=== PATIENT | male | born 1960 | race African-American/Black ===

== ENCOUNTER 2016-10-04 02:24 | Emergency (ER) | payer MEDICAID ==
[~2016-10-04] VITALS: Ht 188 cm; Wt 86.0 kg
[2016-10-04 02:38] VITALS: BP 163/109
== END 2016-10-04 04:00 | disposition left against medical advice (07) ==
LOC: ER 02:26 → EDBD 02:26 → ER 04:00
DX: F19.129 Other psychoactive substance abuse with intoxication, unspecified (principal)
CPT/HCPCS: 99283

== ENCOUNTER 2017-04-21 01:45 | Emergency (ER) | payer MEDICAID ==
[~2017-04-21] VITALS: Ht 190.5 cm; Wt 80.0 kg
[2017-04-21] MEDS ORDERED: SODIUM CHLORIDE 0.9% 1,000 ML IV ONE (06:38)
[2017-04-21] MEDS ORDERED: IBUPROFEN 600MG TABLET PO ONE (06:45)
[2017-04-21 07:25] LABS: BASOPHILS % 1.1 % (0.0-2.0); HEMATOCRIT. 41.7 % (42.0-52.0); HEMOGLOBIN. 13.6 g/dL (14.0-18.0); LYMPHOCYTES % 70.7 % (20.0-50.0); MEAN CORPUSCULAR HEMOGLOBIN 25.7 pg (28.0-32.0); MEAN CORPUSCULAR VOLUME 78.6 fL (80.0-94.0); MEAN PLATELET VOLUME 8.6 fl (7.4-10.4); MONOCYTES % 6.1 % (2.0-8.0); NEUTROPHILS % 21.1 % (40.0-76.0); PLATELET 170 x1000/uL (130-400); RED CELL DISTRIBUTION WIDTH 14.2 % (11.6-14.6)
[2017-04-21 07:39] LABS: CARBON DIOXIDE 27 mEq/L (21-32); CHLORIDE 103 mEq/L (98-107); ETHANOL BLOOD 290 mg/dL
[2017-04-21 10:56] VITALS: BP 109/80
== END 2017-04-21 10:59 | disposition home or self-care (01) ==
LOC: ER 01:48
DX: M25.551 Pain in right hip (principal); F10.129 Alcohol abuse with intoxication, unspecified; Y90.8 Blood alcohol level of 240 mg/100 ml or more; F17.200 Nicotine dependence, unspecified, uncomplicated; G89.29 Other chronic pain
CPT/HCPCS: 36415; 73522; 80053; 85025; 96360; 96361; 99285; G0482; J7030

== ENCOUNTER 2020-10-10 19:11 | Emergency (ER) | payer MEDICAID, OTHER ==
[~2020-10-10] VITALS: Ht 175.3 cm; Wt 86.0 kg
[2020-10-11 06:00] VITALS: BP 119/74
== END 2020-10-11 06:17 | disposition home or self-care (01) ==
LOC: ER 19:11
DX: F10.229 Alcohol dependence with intoxication, unspecified (principal); M79.662 Pain in left lower leg; M79.661 Pain in right lower leg; I10 Essential (primary) hypertension; G40.909 Epilepsy, unspecified, not intractable, without status epilepticus; Y90.9 Presence of alcohol in blood, level not specified; W01.0XXA Fall on same level from slipping, tripping and stumbling without subsequent striking against object, initial encounter; Y93.89 Activity, other specified; Y92.488 Other paved roadways as the place of occurrence of the external cause; Y99.8 Other external cause status
CPT/HCPCS: 93005; 99285

== ENCOUNTER 2020-10-28 20:14 | Emergency (ER) | payer OTHER ==
[~2020-10-28] VITALS: Ht 185.4 cm; Wt 82.0 kg
[2020-10-28] MEDS ORDERED: DEXTROSE 50% WATER 50ML SYRINGE IV ONE (20:33)
[2020-10-28 23:22] LABS: EOSINOPHILS % 6.2 % (0.0-5.0); HEMATOCRIT. 34.1 % (42.0-52.0); HEMOGLOBIN. 11.5 g/dL (14.0-18.0); LYMPHOCYTES % 44.8 % (20.0-50.0); MEAN CORPUSCULAR HEMOGLOBIN 27.6 pg (28.0-32.0); MEAN CORPUSCULAR VOLUME 81.9 fL (80.0-94.0); MEAN PLATELET VOLUME 8.6 fl (7.4-10.4); MONOCYTES % 8.5 % (2.0-8.0); NEUTROPHILS % 39.5 % (40.0-76.0); PLATELET 230 x1000/uL (130-400); RED BLOOD CELL COUNT 4.16 mill/uL (4.7-6.1); RED CELL DISTRIBUTION WIDTH 16.8 % (11.6-14.6)
[2020-10-28 23:36] LABS: CHLORIDE 102 mEq/L (98-107)
[2020-10-28 23:58] LABS: ETHANOL BLOOD 372 mg/dL
[2020-10-29 03:40] VITALS: BP 120/85
== END 2020-10-29 04:28 | disposition home or self-care (01) ==
LOC: ER 20:14
DX: S01.01XA Laceration without foreign body of scalp, initial encounter (principal); F10.129 Alcohol abuse with intoxication, unspecified; Y90.8 Blood alcohol level of 240 mg/100 ml or more; R00.0 Tachycardia, unspecified; W01.198A Fall on same level from slipping, tripping and stumbling with subsequent striking against other object, initial encounter; Y93.01 Activity, walking, marching and hiking; Y92.480 Sidewalk as the place of occurrence of the external cause; I87.8 Other specified disorders of veins
CPT/HCPCS: 36415; 80053; 80320; 85025; 93005; 99285; G0480

== ENCOUNTER 2020-11-04 18:37 | Inpatient (IN) | payer OTHER ==
[~2020-11-04] VITALS: Ht 190.5 cm; Wt 76.2 kg
[2020-11-04] MEDS ORDERED: SODIUM CHLORIDE 0.9% 1,000 ML IV ONE ×2 (19:30→22:00)
[2020-11-04 20:05] LABS: BG BASE EXCESS -0.1 mmol/L (-2.0-2.0); BG CARBOXYHEMOGLOBIN 2.4 % (0.5-1.5); BG DEOXYHEMOGLOBIN 2.1 % (0.0-5.0); BG HCO3 ACT 22.4 mmol/L (22.0-26.0); BG METHEMOGLOBIN 0.4 % (0.0-1.5); BG OXYGEN SATURATION 97.8 % (92.0-98.5); BG OXYHEMOGLOBIN 95.1 % (94.0-97.0); BG PCO2 29.2 mmHg (35.0-45.0); BG PH 7.503 (7.350-7.450); BG PO2 124.8 mmHg (75.0-100.0); BG SAMPLE SITE LEFT RADIAL; BG TOTAL HEMOGLOBIN 10.3 g/dL (12.0-18.0); BG VENT MODE ROOM AIR
[2020-11-04 20:35] LABS: BASOPHILS % 1.3 % (0.0-2.0); EOSINOPHILS % 6.3 % (0.0-5.0); HEMOGLOBIN. 11.3 g/dL (14.0-18.0); MEAN CORPUSCULAR VOLUME 81.5 fL (80.0-94.0); MEAN PLATELET VOLUME 8.5 fl (7.4-10.4); MONOCYTES % 8.3 % (2.0-8.0); NEUTROPHILS % 45.1 % (40.0-76.0); PLATELET 173 x1000/uL (130-400); RED BLOOD CELL COUNT 4.17 mill/uL (4.7-6.1); RED CELL DISTRIBUTION WIDTH 16.4 % (11.6-14.6)
[2020-11-04 20:41] LABS: CHLORIDE 104 mEq/L (98-107)
[2020-11-04 21:17] LABS: ETHANOL BLOOD 418 mg/dL
[2020-11-04] MEDS ORDERED: AZITHROMYCIN 500 MG in DEXT 5% WATER 250 ML IV ONE (22:00)
[2020-11-04] MEDS ORDERED: CEFTRIAXONE 1 G PREMIX 50 ML IV ONE (22:00)
[2020-11-04 23:21] LABS: CLARITY URINE CLEAR (CLEAR); COLOR URINE DARK YELLOW (YELLOW); KETONES URINE TRACE (NEGATIVE); LEUKOCYTE ESTERASE URINE TRACE (NEGATIVE); NITRITE URINE POSITIVE (NEGATIVE); OCCULT BLOOD URINE 2+ (NEGATIVE); PH URINE 5.5 (4.5-8.0); PROTEIN URINE 2+ (NEGATIVE); SPECIFIC GRAVITY URINE 1.024 (1.005-1.030)
[2020-11-04 23:30] LABS: *AMPHETAMINES SCREEN URINE NEGATIVE (NEGATIVE); *BARBITURATES SCREEN URINE NEGATIVE (NEGATIVE); *BENZODIAZEPINES SCREEN URINE NEGATIVE (NEGATIVE); *COCAINE SCREEN URINE NEGATIVE (NEGATIVE); METHADONE URINE SCREEN NEGATIVE (NEGATIVE)
[2020-11-04 23:31] LABS: CANNABINOID URINE SCREEN NEGATIVE (NEGATIVE); OPIATES URINE SCREEN NEGATIVE (NEGATIVE); PHENCYCLIDINE URINE SCREEN NEGATIVE (NEGATIVE)
[2020-11-05] VITALS (7 sets, daily range): BP systolic 128–152; BP diastolic 68–93
[2020-11-05] MEDS ORDERED: PHEN100C4 PO (02:39)
[2020-11-05] MEDS: FOLIC ACID 1 MG, THIAMINE HCL 100 MG, MVI, ADULT NO.1 10 ML in DEXTROSE 5% WATER 1,000 ML IV SCH (05:42)
[2020-11-05] MEDS: CHLORDIAZEPOXIDE 25MG CAPSULE PO SCH ×3 (05:42→21:37)
[2020-11-05] MEDS: LEVETIRACETAM 500MG/5ML CUP PO SCH ×2 (08:51→21:37)
[2020-11-05 08:58] LABS: BASOPHILS % 1.3 % (0.0-2.0); EOSINOPHILS % 5.2 % (0.0-5.0); HEMOGLOBIN. 10.7 g/dL (14.0-18.0); LYMPHOCYTES % 31.7 % (20.0-50.0); MEAN CORPUSCULAR HEMOGLOBIN 27.1 pg (28.0-32.0); MEAN CORPUSCULAR VOLUME 81.5 fL (80.0-94.0); MEAN PLATELET VOLUME 8.6 fl (7.4-10.4); MONOCYTES % 9.3 % (2.0-8.0); NEUTROPHILS % 52.5 % (40.0-76.0); PLATELET 160 x1000/uL (130-400); RED BLOOD CELL COUNT 3.93 mill/uL (4.7-6.1); RED CELL DISTRIBUTION WIDTH 16.6 % (11.6-14.6)
[2020-11-05 09:01] LABS: CHLORIDE 102 mEq/L (98-107)
[2020-11-05] MEDS: LORAZEPAM 2MG/ML CPJ IV PRN ×2 (10:31→17:07)
[2020-11-05] MEDS ORDERED: POTASSIUM CHLORIDE 20MEQ/PACKET PO NR (13:15)
[2020-11-05] MEDS: CEFTRIAXONE 1,000 MG in DEXTROSE 5% WATER 50 ML IV SCH (14:33)
[2020-11-05] MEDS: ENOXAPARIN 40MG/0.4ML SYR SUBCUT SCH (21:37)
[2020-11-06] VITALS (7 sets, daily range): BP systolic 102–132; BP diastolic 78–89
[2020-11-06] MEDS ORDERED: HALOPERIDOL LACTATE 5MG/ML VIAL IM NR (03:00)
[2020-11-06] MEDS: CHLORDIAZEPOXIDE 25MG CAPSULE PO SCH ×3 (06:01→21:43)
[2020-11-06] MEDS: LORAZEPAM 2MG/ML CPJ IV PRN ×2 (09:21→20:39)
[2020-11-06] MEDS: LEVETIRACETAM 500MG/5ML CUP PO SCH ×2 (09:21→20:11)
[2020-11-06] MEDS: FOLIC ACID 1 MG, THIAMINE HCL 100 MG, MVI, ADULT NO.1 10 ML in DEXTROSE 5% WATER 1,000 ML IV SCH (09:22)
[2020-11-06 09:57] LABS: BASOPHILS % 1.2 % (0.0-2.0); EOSINOPHILS % 4.9 % (0.0-5.0); HEMATOCRIT. 35.8 % (42.0-52.0); LYMPHOCYTES % 25.8 % (20.0-50.0); MEAN CORPUSCULAR HEMOGLOBIN 27.3 pg (28.0-32.0); MEAN CORPUSCULAR VOLUME 81.7 fL (80.0-94.0); MEAN PLATELET VOLUME 8.6 fl (7.4-10.4); MONOCYTES % 7.2 % (2.0-8.0); NEUTROPHILS % 60.9 % (40.0-76.0); PLATELET 138 x1000/uL (130-400); RED BLOOD CELL COUNT 4.39 mill/uL (4.7-6.1); RED CELL DISTRIBUTION WIDTH 16.5 % (11.6-14.6)
[2020-11-06 10:07] LABS: CHLORIDE 99 mEq/L (98-107)
[2020-11-06] MEDS ORDERED: POTASSIUM CHLORIDE 20MEQ TABLET SR PO SCH (12:30)
[2020-11-06] MEDS ORDERED: METOPROLOL TARTRATE 25MG TABLET PO SCH (13:15)
[2020-11-06] MEDS: CEFTRIAXONE 1,000 MG in DEXTROSE 5% WATER 50 ML IV SCH (13:20)
[2020-11-06] MEDS ORDERED: HALOPERIDOL LACTATE 5MG/ML VIAL IM PRN (17:15)
[2020-11-06] MEDS: ENOXAPARIN 40MG/0.4ML SYR SUBCUT SCH (20:07)
[2020-11-06] MEDS: METOPROLOL TARTRATE 25MG TABLET PO SCH (20:12)
[2020-11-07] MEDS: LORAZEPAM 2MG/ML CPJ IV PRN ×2 (01:28→07:03)
[2020-11-07 04:00] VITALS: BP 134/96
[2020-11-07] MEDS: CHLORDIAZEPOXIDE 25MG CAPSULE PO SCH ×3 (06:48→20:48)
[2020-11-07 08:37] VITALS: BP 123/66
[2020-11-07] MEDS: FOLIC ACID 1 MG, THIAMINE HCL 100 MG, MVI, ADULT NO.1 10 ML in DEXTROSE 5% WATER 1,000 ML IV SCH (08:45)
[2020-11-07] MEDS: LEVETIRACETAM 500MG/5ML CUP PO SCH ×2 (08:45→20:48)
[2020-11-07] MEDS: METOPROLOL TARTRATE 25MG TABLET PO SCH ×2 (08:46→20:48)
[2020-11-07] MEDS: CEFTRIAXONE 1,000 MG in DEXTROSE 5% WATER 50 ML IV SCH (13:14)
[2020-11-07 16:48] VITALS: BP 131/76
[2020-11-07 20:00] VITALS: BP 121/84
[2020-11-07] MEDS: ENOXAPARIN 40MG/0.4ML SYR SUBCUT SCH (20:48)
[2020-11-08] VITALS: BP 117/79
[2020-11-08 04:00] VITALS: BP 131/87
[2020-11-08] MEDS: CHLORDIAZEPOXIDE 25MG CAPSULE PO SCH ×3 (06:22→20:50)
[2020-11-08 08:24] VITALS: BP 131/89
[2020-11-08] MEDS: LEVETIRACETAM 500MG/5ML CUP PO SCH ×2 (08:38→20:50)
[2020-11-08] MEDS: METOPROLOL TARTRATE 25MG TABLET PO SCH ×2 (08:39→20:50)
[2020-11-08 10:34] LABS: BASOPHILS % 1.9 % (0.0-2.0); HEMATOCRIT. 34.4 % (42.0-52.0); HEMOGLOBIN. 11.6 g/dL (14.0-18.0); LYMPHOCYTES % 33.4 % (20.0-50.0); MEAN CORPUSCULAR HEMOGLOBIN 27.7 pg (28.0-32.0); MEAN CORPUSCULAR VOLUME 82.1 fL (80.0-94.0); MEAN PLATELET VOLUME 8.6 fl (7.4-10.4); MONOCYTES % 12.3 % (2.0-8.0); NEUTROPHILS % 45.4 % (40.0-76.0); PLATELET 142 x1000/uL (130-400); RED CELL DISTRIBUTION WIDTH 16.3 % (11.6-14.6)
[2020-11-08 10:37] LABS: CHLORIDE 100 mEq/L (98-107)
[2020-11-08 11:58] VITALS: BP 128/79
[2020-11-08] MEDS: CEFTRIAXONE 1,000 MG in DEXTROSE 5% WATER 50 ML IV SCH (13:27)
[2020-11-08] MEDS: FOLIC ACID 1 MG, THIAMINE HCL 100 MG, MVI, ADULT NO.1 10 ML in DEXTROSE 5% WATER 1,000 ML IV SCH (13:27)
[2020-11-08] MEDS: RISPERIDONE 1MG TABLET PO SCH (13:27)
[2020-11-08 16:00] VITALS: BP 125/77
[2020-11-08 20:00] VITALS: BP 111/63
[2020-11-08] MEDS: ENOXAPARIN 40MG/0.4ML SYR SUBCUT SCH (20:49)
[2020-11-09] VITALS: BP 118/65
[2020-11-09 04:00] VITALS: BP 125/71
[2020-11-09] MEDS: CHLORDIAZEPOXIDE 25MG CAPSULE PO SCH ×3 (06:01→22:00)
[2020-11-09 08:00] VITALS: BP 111/70
[2020-11-09] MEDS ORDERED: POTASSIUM CHLORIDE 20MEQ TABLET SR PO NR (08:00)
[2020-11-09] MEDS: METOPROLOL TARTRATE 25MG TABLET PO SCH ×2 (09:00→21:00)
[2020-11-09] MEDS: RISPERIDONE 1MG TABLET PO SCH (09:20)
[2020-11-09] MEDS: LEVETIRACETAM 500MG/5ML CUP PO SCH ×2 (09:20→21:00)
[2020-11-09] MEDS: FOLIC ACID 1 MG, THIAMINE HCL 100 MG, MVI, ADULT NO.1 10 ML in DEXTROSE 5% WATER 1,000 ML IV SCH (11:19)
[2020-11-09] MEDS: LORAZEPAM 2MG/ML CPJ IV PRN (11:19)
[2020-11-09 12:00] VITALS: BP 114/63
[2020-11-09] MEDS: CEFTRIAXONE 1,000 MG in DEXTROSE 5% WATER 50 ML IV SCH (13:23)
[2020-11-09 16:00] VITALS: BP 121/83
[2020-11-09] MEDS: PANTOPRAZOLE SODIUM 40 MG/VIAL IV SCH (19:06)
[2020-11-09] MEDS: SUCRALFATE 1 G/10 ML UDC PO SCH ×2 (19:06→21:00)
[2020-11-09 20:00] VITALS: BP 116/81
[2020-11-09] MEDS: ENOXAPARIN 40MG/0.4ML SYR SUBCUT SCH (20:00)
[2020-11-09] MEDS: DEXT 5%/0.45% NACL 1000ML 1,000 ML IV SCH (23:00)
[2020-11-10] VITALS: BP 108/78
[2020-11-10 04:00] VITALS: BP 110/77
[2020-11-10] MEDS: CHLORDIAZEPOXIDE 25MG CAPSULE PO SCH (06:00)
[2020-11-10 06:21] LABS: CHLORIDE 100 mEq/L (98-107)
[2020-11-10 08:00] VITALS: BP 116/76
[2020-11-10] MEDS: SUCRALFATE 1 G/10 ML UDC PO SCH ×5 (08:27→21:00)
[2020-11-10] MEDS: LEVETIRACETAM 500MG/5ML CUP PO SCH ×2 (08:27→20:17)
[2020-11-10] MEDS: RISPERIDONE 1MG TABLET PO SCH (08:27)
[2020-11-10] MEDS: PANTOPRAZOLE SODIUM 40 MG/VIAL IV SCH (08:27)
[2020-11-10] MEDS: METOPROLOL TARTRATE 25MG TABLET PO SCH ×2 (08:28→20:17)
[2020-11-10] MEDS ORDERED: POTASSIUM CHLORIDE 20MEQ TABLET SR PO NR (10:00)
[2020-11-10] MEDS: FOLIC ACID 1 MG, THIAMINE HCL 100 MG, MVI, ADULT NO.1 10 ML in DEXTROSE 5% WATER 1,000 ML IV SCH (10:05)
[2020-11-10] MEDS: DEXT 5%/0.45% NACL 1000ML 1,000 ML IV SCH ×2 (10:06→17:37)
[2020-11-10 12:00] VITALS: BP 102/75
[2020-11-10 16:00] VITALS: BP 127/70
[2020-11-10 16:25] LABS: HEMATOCRIT. 34.9 % (42.0-52.0); HEMOGLOBIN. 11.5 g/dL (14.0-18.0); MEAN CORPUSCULAR HEMOGLOBIN 28.2 pg (28.0-32.0); MEAN CORPUSCULAR VOLUME 85.6 fL (80.0-94.0); MEAN PLATELET VOLUME 9.1 fl (7.4-10.4); PLATELET 140 x1000/uL (130-400); RED BLOOD CELL COUNT 4.08 mill/uL (4.7-6.1); RED CELL DISTRIBUTION WIDTH 15.9 % (11.6-14.6)
[2020-11-10 17:27] LABS: PLATELET ESTIMATE NORMAL
[2020-11-10 20:00] VITALS: BP 116/84
[2020-11-10] MEDS: LORAZEPAM 2MG/ML CPJ IV PRN (20:17)
[2020-11-10] MEDS: ENOXAPARIN 40MG/0.4ML SYR SUBCUT SCH (20:18)
[2020-11-11] VITALS: BP 127/86
[2020-11-11] MEDS: DEXT 5%/0.45% NACL 1000ML 1,000 ML IV SCH ×2 (03:20→14:00)
[2020-11-11 04:00] VITALS: BP 107/53
[2020-11-11] MEDS: SUCRALFATE 1 G/10 ML UDC PO SCH ×4 (06:40→20:58)
[2020-11-11 08:00] VITALS: BP 109/67
[2020-11-11] MEDS: PANTOPRAZOLE SODIUM 40 MG/VIAL IV SCH (10:43)
[2020-11-11] MEDS: FOLIC ACID 1 MG, THIAMINE HCL 100 MG, MVI, ADULT NO.1 10 ML in DEXTROSE 5% WATER 1,000 ML IV SCH (10:43)
[2020-11-11] MEDS: METOPROLOL TARTRATE 25MG TABLET PO SCH ×2 (10:44→21:00)
[2020-11-11] MEDS: RISPERIDONE 1MG TABLET PO SCH (10:44)
[2020-11-11] MEDS: LEVETIRACETAM 500MG/5ML CUP PO SCH ×2 (10:47→21:06)
[2020-11-11 12:00] VITALS: BP 138/91
[2020-11-11 16:00] VITALS: BP 114/81
[2020-11-11] MEDS ORDERED: ONDANSETRON HCL 4MG/2ML INJ IV PRN (19:45)
[2020-11-11 20:00] VITALS: BP 104/70
[2020-11-11] MEDS: ENOXAPARIN 40MG/0.4ML SYR SUBCUT SCH (20:58)
[2020-11-12] VITALS (7 sets, daily range): BP systolic 93–124; BP diastolic 57–71
[2020-11-12] MEDS: DEXT 5%/0.45% NACL 1000ML 1,000 ML IV SCH ×3 (00:08→20:07)
[2020-11-12] MEDS: SUCRALFATE 1 G/10 ML UDC PO SCH ×4 (06:16→20:07)
[2020-11-12] MEDS: METOPROLOL TARTRATE 25MG TABLET PO SCH ×2 (08:47→20:08)
[2020-11-12] MEDS: LEVETIRACETAM 500MG/5ML CUP PO SCH ×2 (09:16→20:58)
[2020-11-12] MEDS: RISPERIDONE 1MG TABLET PO SCH (09:17)
[2020-11-12] MEDS: PANTOPRAZOLE SODIUM 40 MG/VIAL IV SCH (09:17)
[2020-11-12] MEDS: FOLIC ACID 1 MG, THIAMINE HCL 100 MG, MVI, ADULT NO.1 10 ML in DEXTROSE 5% WATER 1,000 ML IV SCH (10:24)
[2020-11-12] MEDS: ENOXAPARIN 40MG/0.4ML SYR SUBCUT SCH (20:08)
== END 2020-11-12 21:40 | DRG 720 ==
LOC: ER 18:37 → 7WST 23:42 → EDBEDREQTM 23:54 → EDBEDREQ 23:54 → ENRESERV 11-05 00:07 → 8WST 11-06 08:21
PROVIDERS: ADMIT Internal Medicine; ATTEND Internal Medicine
DX: A41.9 Sepsis, unspecified organism (principal); E43 Unspecified severe protein-calorie malnutrition; L89.313 Pressure ulcer of right buttock, stage 3; G92 Toxic encephalopathy; R13.10 Dysphagia, unspecified; E87.1 Hypo-osmolality and hyponatremia; D64.9 Anemia, unspecified; F10.129 Alcohol abuse with intoxication, unspecified; G40.909 Epilepsy, unspecified, not intractable, without status epilepticus; N39.0 Urinary tract infection, site not specified; R09.02 Hypoxemia; Z20.822 Contact with and (suspected) exposure to COVID-19; Y90.8 Blood alcohol level of 240 mg/100 ml or more; I87.8 Other specified disorders of veins; I87.2 Venous insufficiency (chronic) (peripheral); E87.6 Hypokalemia; Z88.0 Allergy status to penicillin; Z68.21 Body mass index [BMI] 21.0-21.9, adult; Z71.41 Alcohol abuse counseling and surveillance of alcoholic
CPT/HCPCS: 36415; 36600; 70551; 71045; 80048; 80053; 80076; 80305; 80320; 81003; 82040; 82140; 82375; 82805; 83605; 83880; 84134; 84484; 85025; 92610; 93005; 93923; 97161; 97530; 99291; A6261; C1893; C9113; J0456; J0696; J1630; J1650; J2060; J2405; J3411; J3490; J7030; J7060; J7070; U0003; U0005; G0480